=== PATIENT | male | born 1965 | race Caucasian/White ===

== ENCOUNTER 2017-05-13 18:42 | Emergency (ER) | payer OTHER, SELFPAY ==
[~2017-05-13 18:42] MED LIST: Iopamidol 370 76% 100 ML VIAL ONE; Sodium Chloride 0.9% 1,000 ML BAG ONE
[2017-05-13] MEDS ORDERED: Morphine 4 MG/ML VIAL ONE (19:29)
[2017-05-13] MEDS ORDERED: Pantoprazole 40 MG VIAL ONE (19:29)
[2017-05-13] MEDS ORDERED: Ondansetron HCl/PF 4 MG/2 ML Vial ONE (19:29)
[2017-05-13 19:30] LABS: #Basophils 0.1 thou/uL (0.0-0.2); #Eosinphils 0.3 thou/uL (0.0-0.7); #Lymphocytes 1.3 thou/uL (1.20-3.40); #Monocytes 0.6 thou/uL (0.11-0.59); #Neutrophils 6.2 thou/uL (1.40-6.50); %Basophils 1.3 % (0.0-1.0); %Eosinophils 3.1 % (0.0-10.0); %Lymphocytes 15.6 % (21.0-51.0); %Monocytes 7.3 % (0.0-10.0); %Neutrophils 72.7 % (42.0-75.0); Mean Corpuscular HGB CONC 33.2 g/dL (32.0-36.0); Mean Corpuscular Hemoglobin 29.2 pg (27.0-31.0); Mean Corpuscular Volume 87.9 fl (80.0-94.0); Mean Platelet Volume 9.3 fL (7.4-10.4); Platelet Count 216 thou/uL (130-400); Red Blood Cell (RBC) Count 6.18 mill/uL (4.70-6.10); White Blood Cell (WBC) Count 8.5 thou/uL (4.8-10.8)
[2017-05-13 19:52] LABS: ALT (SGPT) 22 U/L (8-55); AST (SGOT) 13 U/L (5-34); Albumin 4.3 g/dL (3.5-5.0); Alkaline Phosphatase 55 U/L (40-150); Anion Gap 16 mmol/L (10-20); BUN (Urea Nitrogen) 20 mg/dL (8.9-20.6); Bilirubin, Total 0.8 mg/dL (0.2-1.2); Calc. Creatinine Clearance 0 mL/min (70-130); Carbon Dioxide 20 mmol/L (22-29); Chloride 107 mmol/L (98-107); Estimated GFR-MDRD 71; Globulin 3.2 g/dL (2.4-3.5); Glucose 149 mg/dL (70-105); Lipase 13 U/L (8-78); Potassium 4.1 mmol/L (3.5-5.1); Protein, Total 7.5 g/dL (6.0-8.3)
[2017-05-13 20:01] LABS: Sodium 139 mmol/L (136-145)
--- NOTE | 2017-05-13 21:25 | CT ---
ABDOMEN AND PELVIC CT SCAN WITH IV CONTRAST: History: 51-year-old male with nausea and vomiting for one day. Abdominal pain. FINDINGS: The lung bases are clear. There is status post cholecystectomy. Unremarkable liver without ductal dil atation. Probable small hiatal hernia. Spleen, pancreas, and adrenal glands are unremarkable. Right r enal cyst. There is some minimally dilated small bowel loops with air and fluid levels within them as well as some fluid and air within the colon. This does not have the typical appearance of obstructio n but could represent some generalized ileocolonic ileus or enteritis. Normal appearing appendix. No renal calculi or acute obstruction. IMPRESSION: Some minimally dilated small bowel loops with air fluid levels in the small bowel as well as in the c olon. Appearance suggesting that of some generalized ileocolonic ileus or some nonspecific enteritis. Probable small hiatal hernia. Right renal cyst. Status post cholecystectomy. No other significant ac [place] [facility] process. POS: [facility]
== END 2017-05-13 21:58 | disposition home or self-care (01) ==
LOC: MADERS 18:42
DX: K52.9 Noninfective gastroenteritis and colitis, unspecified (principal); E11.9 Type 2 diabetes mellitus without complications; I10 Essential (primary) hypertension; J44.9 Chronic obstructive pulmonary disease, unspecified; F17.210 Nicotine dependence, cigarettes, uncomplicated
CPT/HCPCS: 74177; 80053; 83690; 85025; 96361; 96374; 96375; C9113; J2270; J2405; J7050